=== PATIENT | male | born 1975 | race Caucasian/White ===

== ENCOUNTER 2019-05-15 07:25 | Day surgery (SDC) | payer OTHER ==
[2019-05-15] MEDS ORDERED: fentaNYL CITRATE/PF 100 MCG/2 ML AMP ONE (08:18)
[2019-05-15] MEDS ORDERED: SIMETHICONE 40 MG/0.6 ML ML ONE (08:18)
[2019-05-15] MEDS: MIDAZOLAM HCL 5 MG/5 ML VIAL ONE ×2 (08:27→08:40)
[2019-05-15 10:54] VITALS: BP_SYST 131
== END 2019-05-15 11:15 | disposition home or self-care (01) ==
LOC: SDS 07:25 → SMU 07:25 → EDSEX 08:00 → SDS 11:15
PROVIDERS: ATTEND Surgery
DX: K62.5 Hemorrhage of anus and rectum (principal)
CPT/HCPCS: 43236; 45378; 99152; 99153; G0378; J2250; J3010; J7030; 43235